=== PATIENT | female | born 1945 | race Caucasian/White ===

== ENCOUNTER → 2023-12-02 08:24 | Outpatient (REF) | payer MEDICARE, SELFPAY ==
[2023-12-02 09:23] LABS: INR 1.68; PT 20.1 Sec (11.4-14.6)
== END ==
LOC: REG 08:24
PROVIDERS: ATTENDING PHYSICIAN Internal Medicine Cardiovascular Disease; FAMILY PHYSICIAN Physician Assistant Medical
DX: I48.91 Unspecified atrial fibrillation (principal)
CPT/HCPCS: 36415; 85610

== ENCOUNTER → 2023-12-09 07:35 | Outpatient (REF) | payer MEDICARE, SELFPAY ==
[2023-12-09 08:29] LABS: INR 1.73; PT 20.1 Sec (11.4-14.6)
== END ==
LOC: REG 07:35
PROVIDERS: ATTENDING PHYSICIAN Internal Medicine Cardiovascular Disease
DX: I48.91 Unspecified atrial fibrillation (principal)
CPT/HCPCS: 36415; 85610

== ENCOUNTER → 2023-12-17 10:21 | Outpatient (REF) | payer MEDICARE, SELFPAY ==
[2023-12-17 11:06] LABS: INR 2.06; PT 23.4 Sec (11.4-14.6)
== END ==
LOC: REG 10:21
PROVIDERS: ATTENDING PHYSICIAN Internal Medicine Cardiovascular Disease
DX: I48.91 Unspecified atrial fibrillation (principal)
CPT/HCPCS: 36415; 85610

== ENCOUNTER → 2023-12-23 07:21 | Outpatient (REF) | payer MEDICARE, SELFPAY ==
[2023-12-23 08:32] LABS: PT 26.9 Sec (11.4-14.6)
== END ==
LOC: REG 07:21
PROVIDERS: ATTENDING PHYSICIAN Internal Medicine Cardiovascular Disease; FAMILY PHYSICIAN Physician Assistant Medical
DX: I48.91 Unspecified atrial fibrillation (principal)
CPT/HCPCS: 36415; 85610

== ENCOUNTER → 2023-12-30 06:45 | Outpatient (REF) | payer MEDICARE, SELFPAY ==
[2023-12-30 07:51] LABS: INR 3.18; PT 32.5 Sec (11.4-14.6)
== END ==
LOC: REG 06:45
PROVIDERS: ATTENDING PHYSICIAN Internal Medicine Cardiovascular Disease; FAMILY PHYSICIAN Physician Assistant Medical
DX: I48.91 Unspecified atrial fibrillation (principal)
CPT/HCPCS: 36415; 85610

== ENCOUNTER → 2024-01-06 06:50 | Outpatient (REF) | payer MEDICARE, SELFPAY ==
[2024-01-06 08:31] LABS: INR 3.11
== END ==
LOC: REG 06:50
PROVIDERS: ATTENDING PHYSICIAN Internal Medicine Cardiovascular Disease; FAMILY PHYSICIAN Physician Assistant Medical
DX: I48.91 Unspecified atrial fibrillation (principal)
CPT/HCPCS: 36415; 85610

== ENCOUNTER → 2024-01-13 07:12 | Outpatient (REF) | payer MEDICARE, SELFPAY ==
[2024-01-13 08:04] LABS: INR 2.41; PT 26.1 Sec (11.4-14.6)
== END ==
LOC: REG 07:12
PROVIDERS: ATTENDING PHYSICIAN Internal Medicine Cardiovascular Disease; FAMILY PHYSICIAN Physician Assistant Medical
DX: I48.91 Unspecified atrial fibrillation (principal)
CPT/HCPCS: 36415; 85610

== ENCOUNTER → 2024-01-20 07:14 | Outpatient (REF) | payer MEDICARE, SELFPAY ==
[2024-01-20 08:31] LABS: INR 2.85; PT 29.9 Sec (11.4-14.6)
== END ==
LOC: REG 07:14
PROVIDERS: ATTENDING PHYSICIAN Internal Medicine Cardiovascular Disease; FAMILY PHYSICIAN Physician Assistant Medical
DX: I48.91 Unspecified atrial fibrillation (principal)
CPT/HCPCS: 36415; 85610

== ENCOUNTER → 2024-01-27 07:18 | Outpatient (REF) | payer MEDICARE, SELFPAY ==
[2024-01-27 08:34] LABS: INR 2.32; PT 25.4 Sec (11.4-14.6)
== END ==
LOC: REG 07:18
PROVIDERS: ATTENDING PHYSICIAN Internal Medicine Cardiovascular Disease; FAMILY PHYSICIAN Physician Assistant Medical
DX: I48.91 Unspecified atrial fibrillation (principal)
CPT/HCPCS: 36415; 85610

== ENCOUNTER → 2024-02-03 06:28 | Outpatient (REF) | payer MEDICARE, SELFPAY ==
[2024-02-03 07:09] LABS: INR 2.31; PT 25.2 Sec (11.4-14.6)
== END ==
LOC: REG 06:28
PROVIDERS: ATTENDING PHYSICIAN Internal Medicine Cardiovascular Disease; FAMILY PHYSICIAN Physician Assistant Medical
DX: I48.91 Unspecified atrial fibrillation (principal)
CPT/HCPCS: 36415; 85610

== ENCOUNTER → 2024-02-10 06:24 | Outpatient (REF) | payer MEDICARE, SELFPAY ==
[2024-02-10 07:36] LABS: INR 2.08; PT 23.2 Sec (11.4-14.6)
== END ==
LOC: REG 06:24
PROVIDERS: ATTENDING PHYSICIAN Internal Medicine Cardiovascular Disease; FAMILY PHYSICIAN Physician Assistant Medical
DX: Z79.01 Long term (current) use of anticoagulants (principal)
CPT/HCPCS: 36415; 85610

== ENCOUNTER → 2024-02-18 06:33 | Outpatient (REF) | payer MEDICARE, SELFPAY ==
[2024-02-18 07:53] LABS: INR 1.94; PT 22.3 Sec (11.4-14.6)
== END ==
LOC: REG 06:33
PROVIDERS: ATTENDING PHYSICIAN Internal Medicine Cardiovascular Disease; FAMILY PHYSICIAN Physician Assistant Medical
DX: I48.91 Unspecified atrial fibrillation (principal)
CPT/HCPCS: 36415; 85610

== ENCOUNTER → 2024-02-24 06:44 | Outpatient (REF) | payer MEDICARE, SELFPAY ==
[2024-02-24 07:57] LABS: INR 2.28
== END ==
LOC: REG 06:44
PROVIDERS: ATTENDING PHYSICIAN Internal Medicine Cardiovascular Disease
DX: I48.91 Unspecified atrial fibrillation (principal)
CPT/HCPCS: 36415; 85610

== ENCOUNTER → 2024-03-23 06:26 | Outpatient (REF) | payer MEDICARE, SELFPAY ==
[2024-03-23 07:46] LABS: INR 2.58; PT 27.6 Sec (11.4-14.6)
== END ==
LOC: REG 06:26
PROVIDERS: ATTENDING PHYSICIAN Internal Medicine Cardiovascular Disease
DX: I48.91 Unspecified atrial fibrillation (principal)
CPT/HCPCS: 36415; 85610

== ENCOUNTER → 2024-04-20 06:29 | Outpatient (REF) | payer MEDICARE, SELFPAY ==
[2024-04-20 08:02] LABS: INR 4.05; PT 39.4 Sec (11.4-14.6)
== END ==
LOC: REG 06:29
PROVIDERS: ATTENDING PHYSICIAN Internal Medicine Cardiovascular Disease
DX: I48.91 Unspecified atrial fibrillation (principal)
CPT/HCPCS: 36415; 85610

== ENCOUNTER → 2024-04-22 12:19 | Outpatient (REF) | payer MEDICARE, SELFPAY ==
[2024-04-22 18:40] LABS: Urine Albumin Negative (Neg - Trace); Urine Bilirubin 1+ (Negative); Urine Character Clear (Clear); Urine Color Yellow; Urine Glucose Negative (Negative); Urine Ketone Trace (Negative); Urine Leukocyte 2+ (Negative); Urine Nitrite Negative (Negative); Urine Occult Blood Negative (Negative); Urine Urobilinogen Negative (Neg - 1+)
[2024-04-22 18:56] LABS: Urine Squamous Cell >30 /LPF (Few); Urine Urothelial Cell 0-2 /LPF (FEW)
[2024-04-22 18:57] LABS: Urine Bacteria Many (Negative); Urine Red Blood Cell 0-2 /HPF (0-2)
== END ==
LOC: CLAB 12:19
PROVIDERS: ATTENDING PHYSICIAN Physician Assistant Medical
DX: R82.90 Unspecified abnormal findings in urine (principal)
CPT/HCPCS: 81003; 81015; 87086

== ENCOUNTER → 2024-04-27 06:24 | Outpatient (REF) | payer MEDICARE, SELFPAY ==
[2024-04-27 06:48] LABS: % Immature Granulocytes 0.4 % (0-0.5); % Lymphocytes 27.1 % (20.5-51.1); % Monocytes 11.3 % (1.7-9.3); % Neutrophils 58.2 % (42.2-75.2); Absolute Basophils 0.1 10^3/uL (0-0.2); Absolute Eosinophils 0.1 10^3/uL (0-0.7); Absolute Lymphocytes 1.3 10^3/uL (1.2-3.4); Absolute Monocytes 0.6 10^3/uL (0.1-0.6); Absolute Neutrophils 2.9 10^3/uL (1.4-6.5); Hematocrit 38.9 % (37.0-47.0); Hemoglobin 13.3 g/dL (12.0-16.0); Mean Corp Hgb Conc. 34.2 g/dL (33.0-37.0); Mean Corpuscular Hgb 29.9 pg (27.0-31.0); Mean Corpuscular Volume 87.4 fL (81.0-99.0); Mean Platelet Volume 10.8 fL (7.4-10.4); Nucleated Red Blood Cells % 0 %; Platelet Count 202 10^3/uL (130-400); Red Blood Cell Count 4.45 10^6/uL (4.20-5.40); Red Cell Dist. Width 13.1 % (11.5-14.5); White Blood Cell Count 4.9 10^3/uL (4.8-10.8)
[2024-04-27 07:00] LABS: INR 4.76; PT 44.9 Sec (11.4-14.6)
[2024-04-27 08:10] LABS: ALT (SGPT) < 10 U/L (0-35); AST (SGOT) 16 U/L (14-36); Alkaline Phosphatase 57 U/L (38-126); Blood Urea Nitrogen 41 mg/dl (7-17); Calcium 9.1 mg/dl (8.4-10.2); Carbon Dioxide 32 mmol/L (22-30); Chloride 102 mmol/L (98-107); Glucose 95 mg/dl (70-99); Potassium 3.2 mmol/L (3.5-5.1); Sodium 142 mmol/L (135-145); Total Bilirubin 2.1 mg/dl (0.2-1.3); Total Protein 6.2 g/dl (6.3-8.2); eGFR 21.97
== END ==
LOC: REG 06:24
PROVIDERS: ATTENDING PHYSICIAN Internal Medicine Cardiovascular Disease; FAMILY PHYSICIAN Physician Assistant Medical
DX: I48.91 Unspecified atrial fibrillation (principal); R82.90 Unspecified abnormal findings in urine; R63.0 Anorexia
CPT/HCPCS: 36415; 80053; 85025; 85610

== ENCOUNTER → 2024-05-04 06:23 | Outpatient (REF) | payer MEDICARE, SELFPAY ==
[2024-05-04 07:48] LABS: INR 5.53; PT 50.5 Sec (11.4-14.6)
== END ==
LOC: REG 06:23
PROVIDERS: ATTENDING PHYSICIAN Internal Medicine Cardiovascular Disease; FAMILY PHYSICIAN Physician Assistant Medical
DX: I48.91 Unspecified atrial fibrillation (principal)
CPT/HCPCS: 36415; 85610

== ENCOUNTER → 2024-05-07 09:30 | Outpatient (REF) | payer MEDICARE, SELFPAY ==
[2024-05-07 10:20] LABS: % Basophils 0.6 % (0-2); % Eosinophils 0.8 % (0-6); % Immature Granulocytes 0.9 % (0-0.5); % Monocytes 9.4 % (1.7-9.3); % Neutrophils 67.3 % (42.2-75.2); Absolute Immature Granulocytes 0.1 10^3/uL (0-0.05); Absolute Lymphocytes 1.1 10^3/uL (1.2-3.4); Absolute Monocytes 0.5 10^3/uL (0.1-0.6); Absolute Neutrophils 3.6 10^3/uL (1.4-6.5); Hematocrit 40.3 % (37.0-47.0); Mean Corp Hgb Conc. 32.3 g/dL (33.0-37.0); Mean Corpuscular Hgb 29.5 pg (27.0-31.0); Mean Corpuscular Volume 91.6 fL (81.0-99.0); Mean Platelet Volume 10.9 fL (7.4-10.4); Nucleated Red Blood Cells % 0 %; Platelet Count 223 10^3/uL (130-400); Red Cell Dist. Width 13.4 % (11.5-14.5); White Blood Cell Count 5.3 10^3/uL (4.8-10.8)
[2024-05-07 10:34] LABS: Albumin 3.7 g/dl (3.5-5.0); Blood Urea Nitrogen 37 mg/dl (7-17); Carbon Dioxide 32 mmol/L (22-30); Chloride 103 mmol/L (98-107); Glucose 104 mg/dl (70-99); Phosphorus 2.8 mg/dl (2.5-4.5); Potassium 3.6 mmol/L (3.5-5.1); Sodium 141 mmol/L (135-145); eGFR 27.96
[2024-05-07 11:49] LABS: Osmolality Urine 605 mOsm/kg (300-900)
[2024-05-07 11:59] LABS: Urine Protein 13 mg/dl (0-12); Urine Sodium 27 mmol/L (30-90)
== END ==
LOC: REG 09:30
PROVIDERS: ATTENDING PHYSICIAN Internal Medicine; FAMILY PHYSICIAN Physician Assistant Medical
DX: N17.9 Acute kidney failure, unspecified (principal)
CPT/HCPCS: 36415; 80069; 82570; 83935; 84156; 84300; 85025

== ENCOUNTER → 2024-05-11 06:16 | Outpatient (REF) | payer MEDICARE, SELFPAY ==
[2024-05-11 07:44] LABS: INR 3.37; PT 34.1 Sec (11.4-14.6)
== END ==
LOC: REG 06:16
PROVIDERS: ATTENDING PHYSICIAN Internal Medicine Cardiovascular Disease
DX: I48.91 Unspecified atrial fibrillation (principal)
CPT/HCPCS: 36415; 85610

== ENCOUNTER → 2024-05-17 08:29 | Outpatient (REF) | payer MEDICARE, SELFPAY ==
[2024-05-17 09:56] LABS: PT 27.7 Sec (11.4-14.6)
== END ==
LOC: REG 08:29
PROVIDERS: ATTENDING PHYSICIAN Internal Medicine Cardiovascular Disease; FAMILY PHYSICIAN Physician Assistant Medical
DX: I48.91 Unspecified atrial fibrillation (principal)
CPT/HCPCS: 36415; 85610

== ENCOUNTER → 2024-05-25 06:18 | Outpatient (REF) | payer MEDICARE, SELFPAY ==
[2024-05-25 07:23] LABS: INR 1.35; PT 16.7 Sec (11.4-14.6)
== END ==
LOC: REG 06:18
PROVIDERS: ATTENDING PHYSICIAN Internal Medicine Cardiovascular Disease; FAMILY PHYSICIAN Physician Assistant Medical
DX: I48.91 Unspecified atrial fibrillation (principal)
CPT/HCPCS: 36415; 85610

== ENCOUNTER → 2024-05-28 09:03 | Outpatient (REF) | payer MEDICARE, SELFPAY ==
[2024-05-28 10:04] LABS: Albumin 3.7 g/dl (3.5-5.0); Blood Urea Nitrogen 25 mg/dl (7-17); Carbon Dioxide 28 mmol/L (22-30); Chloride 109 mmol/L (98-107); Glucose 88 mg/dl (70-99); Phosphorus 3.1 mg/dl (2.5-4.5); Potassium 3.8 mmol/L (3.5-5.1); Sodium 142 mmol/L (135-145); eGFR 34.79
== END ==
LOC: REG 09:03
PROVIDERS: ATTENDING PHYSICIAN Internal Medicine; FAMILY PHYSICIAN Physician Assistant Medical
DX: I10 Essential (primary) hypertension (principal); E53.8 Deficiency of other specified B group vitamins; N17.9 Acute kidney failure, unspecified
CPT/HCPCS: 36415; 80069

== ENCOUNTER → 2024-06-01 09:59 | Outpatient (REF) | payer MEDICARE, SELFPAY ==
[2024-06-01 11:25] LABS: INR 1.21; PT 15.2 Sec (11.4-14.6)
== END ==
LOC: REG 09:59
PROVIDERS: ATTENDING PHYSICIAN Internal Medicine Cardiovascular Disease; FAMILY PHYSICIAN Physician Assistant Medical
DX: I48.91 Unspecified atrial fibrillation (principal)
CPT/HCPCS: 36415; 85610

== ENCOUNTER → 2024-06-08 06:19 | Outpatient (REF) | payer MEDICARE, SELFPAY ==
[2024-06-08 07:29] LABS: INR 1.54; PT 18.3 Sec (11.4-14.6)
== END ==
LOC: REG 06:19
PROVIDERS: ATTENDING PHYSICIAN Internal Medicine Cardiovascular Disease; FAMILY PHYSICIAN Physician Assistant Medical
DX: I48.91 Unspecified atrial fibrillation (principal)
CPT/HCPCS: 36415; 85610

== ENCOUNTER → 2024-06-15 06:22 | Outpatient (REF) | payer MEDICARE, SELFPAY ==
[2024-06-15 07:47] LABS: INR 2.05
== END ==
LOC: REG 06:22
PROVIDERS: ATTENDING PHYSICIAN Internal Medicine Cardiovascular Disease; FAMILY PHYSICIAN Physician Assistant Medical
DX: I48.91 Unspecified atrial fibrillation (principal)
CPT/HCPCS: 36415; 85610

== ENCOUNTER → 2024-06-22 06:18 | Outpatient (REF) | payer MEDICARE, SELFPAY ==
[2024-06-22 07:48] LABS: INR 1.62; PT 19.1 Sec (11.4-14.6)
== END ==
LOC: REG 06:18
PROVIDERS: ATTENDING PHYSICIAN Internal Medicine Cardiovascular Disease; FAMILY PHYSICIAN Physician Assistant Medical
DX: I48.91 Unspecified atrial fibrillation (principal)
CPT/HCPCS: 36415; 85610

== ENCOUNTER → 2024-06-29 06:29 | Outpatient (REF) | payer MEDICARE, SELFPAY ==
[2024-06-29 07:31] LABS: INR 2.26; PT 24.8 Sec (11.4-14.6)
== END ==
LOC: REG 06:29
PROVIDERS: ATTENDING PHYSICIAN Internal Medicine Cardiovascular Disease; FAMILY PHYSICIAN Physician Assistant Medical
DX: I48.91 Unspecified atrial fibrillation (principal)
CPT/HCPCS: 36415; 85610

== ENCOUNTER → 2024-07-06 06:29 | Outpatient (REF) | payer MEDICARE, SELFPAY ==
[2024-07-06 07:31] LABS: INR 1.87; PT 21.4 Sec (11.4-14.6)
== END ==
LOC: REG 06:29
PROVIDERS: ATTENDING PHYSICIAN Internal Medicine Cardiovascular Disease; FAMILY PHYSICIAN Physician Assistant Medical
DX: I48.91 Unspecified atrial fibrillation (principal)
CPT/HCPCS: 36415; 85610

== ENCOUNTER → 2024-07-14 09:57 | Outpatient (REF) | payer MEDICARE, SELFPAY ==
[2024-07-14 10:56] LABS: INR 1.46; PT 17.9 Sec (11.4-14.6)
== END ==
LOC: REG 09:57
PROVIDERS: ATTENDING PHYSICIAN Internal Medicine Cardiovascular Disease; FAMILY PHYSICIAN Physician Assistant Medical
DX: I48.91 Unspecified atrial fibrillation (principal)
CPT/HCPCS: 36415; 85610

== ENCOUNTER → 2024-07-20 09:32 | Outpatient (REF) | payer MEDICARE, SELFPAY ==
[2024-07-20 10:20] LABS: INR 2.15; PT 23.9 Sec (11.4-14.6)
== END ==
LOC: REG 09:32
PROVIDERS: ATTENDING PHYSICIAN Internal Medicine Cardiovascular Disease; FAMILY PHYSICIAN Physician Assistant Medical
DX: I48.91 Unspecified atrial fibrillation (principal)
CPT/HCPCS: 36415; 85610

== ENCOUNTER → 2024-07-27 09:44 | Outpatient (REF) | payer MEDICARE, SELFPAY ==
[2024-07-27 11:46] LABS: INR 1.35; PT 16.5 Sec (11.4-14.6)
== END ==
LOC: REG 09:44
PROVIDERS: ATTENDING PHYSICIAN Internal Medicine Cardiovascular Disease
DX: I48.91 Unspecified atrial fibrillation (principal)
CPT/HCPCS: 36415; 85610

== ENCOUNTER → 2024-08-03 08:41 | Outpatient (REF) | payer MEDICARE, SELFPAY ==
[2024-08-03 10:31] LABS: PT 24.3 Sec (11.4-14.6)
== END ==
LOC: REG 08:41
PROVIDERS: ATTENDING PHYSICIAN Internal Medicine Cardiovascular Disease; FAMILY PHYSICIAN Physician Assistant Medical
DX: I48.91 Unspecified atrial fibrillation (principal)
CPT/HCPCS: 36415; 85610

== ENCOUNTER → 2024-08-10 09:10 | Outpatient (REF) | payer MEDICARE, SELFPAY ==
[2024-08-10 10:27] LABS: INR 2.52; PT 27.1 Sec (11.4-14.6)
== END ==
LOC: REG 09:10
PROVIDERS: ATTENDING PHYSICIAN Internal Medicine Cardiovascular Disease; FAMILY PHYSICIAN Physician Assistant Medical
DX: I48.91 Unspecified atrial fibrillation (principal)
CPT/HCPCS: 36415; 85610

== ENCOUNTER → 2024-08-17 09:22 | Outpatient (REF) | payer MEDICARE, SELFPAY ==
[2024-08-17 11:30] LABS: INR 3.88; PT 38.1 Sec (11.4-14.6)
== END ==
LOC: REG 09:22
PROVIDERS: ATTENDING PHYSICIAN Internal Medicine Cardiovascular Disease; FAMILY PHYSICIAN Physician Assistant Medical
DX: I48.91 Unspecified atrial fibrillation (principal)
CPT/HCPCS: 36415; 85610

== ENCOUNTER → 2024-08-24 09:58 | Outpatient (REF) | payer MEDICARE, SELFPAY ==
[2024-08-24 10:55] LABS: INR 4.31; PT 41.5 Sec (11.4-14.6)
== END ==
LOC: REG 09:58
PROVIDERS: ATTENDING PHYSICIAN Internal Medicine Cardiovascular Disease; FAMILY PHYSICIAN Physician Assistant Medical
DX: I48.91 Unspecified atrial fibrillation (principal)
CPT/HCPCS: 36415; 85610

== ENCOUNTER → 2024-08-31 09:28 | Outpatient (REF) | payer MEDICARE, SELFPAY ==
[2024-08-31 10:26] LABS: PT 43.7 Sec (11.4-14.6)
== END ==
LOC: REG 09:28
PROVIDERS: ATTENDING PHYSICIAN Internal Medicine Cardiovascular Disease; FAMILY PHYSICIAN Physician Assistant Medical
DX: I48.91 Unspecified atrial fibrillation (principal)
CPT/HCPCS: 36415; 85610

== ENCOUNTER → 2024-09-07 08:27 | Outpatient (REF) | payer MEDICARE, SELFPAY ==
[2024-09-07 09:55] LABS: INR 2.84; PT 29.8 Sec (11.4-14.6)
== END ==
LOC: REG 08:27
PROVIDERS: ATTENDING PHYSICIAN Internal Medicine Cardiovascular Disease
DX: I48.91 Unspecified atrial fibrillation (principal)
CPT/HCPCS: 36415; 85610

== ENCOUNTER → 2024-09-15 14:15 | Outpatient (REF) | payer MEDICARE, SELFPAY ==
[2024-09-15 15:05] LABS: INR 2.48; PT 27.3 Sec (11.4-14.6)
== END ==
LOC: REG 14:15
PROVIDERS: ATTENDING PHYSICIAN Internal Medicine Cardiovascular Disease
DX: I48.91 Unspecified atrial fibrillation (principal)
CPT/HCPCS: 36415; 85610

== ENCOUNTER → 2024-09-21 10:19 | Outpatient (REF) | payer MEDICARE, SELFPAY ==
[2024-09-21 11:39] LABS: INR 2.24; PT 24.9 Sec (11.4-14.6)
== END ==
LOC: REG 10:19
PROVIDERS: ATTENDING PHYSICIAN Internal Medicine Cardiovascular Disease; FAMILY PHYSICIAN Physician Assistant Medical
DX: I48.91 Unspecified atrial fibrillation (principal)
CPT/HCPCS: 36415; 85610

== ENCOUNTER 2024-10-17 18:25 | Emergency (ER) | payer MEDICARE, SELFPAY ==
[2024-10-17 18:33] VITALS: BP 150/87
[2024-10-17 19:49] LABS: ALT (SGPT) 16 U/L (0-35); AST (SGOT) 18 U/L (14-36); Albumin 4.2 g/dl (3.5-5.0); Alkaline Phosphatase 99 U/L (38-126); Blood Urea Nitrogen 47 mg/dl (7-17); Carbon Dioxide 30 mmol/L (22-30); Chloride 105 mmol/L (98-107); Glucose 70 mg/dl (70-99); Potassium 4.9 mmol/L (3.5-5.1); Sodium 144 mmol/L (135-145); Total Bilirubin 0.4 mg/dl (0.2-1.3); Total Protein 6.5 g/dl (6.3-8.2); eGFR 29.94
[2024-10-17 19:50] LABS: NT-proBNP 4780 pg/ml
[2024-10-17 19:51] LABS: % Eosinophils 4.1 % (0-6); % Immature Granulocytes 0.3 % (0-0.5); % Lymphocytes 30.1 % (20.5-51.1); % Monocytes 14.1 % (1.7-9.3); % Neutrophils 50.4 % (42.2-75.2); Absolute Eosinophils 0.2 10^3/uL (0-0.7); Absolute Lymphocytes 1.2 10^3/uL (1.2-3.4); Absolute Monocytes 0.6 10^3/uL (0.1-0.6); Hematocrit 36.8 % (37.0-47.0); Hemoglobin 11.8 g/dL (12.0-16.0); Mean Corp Hgb Conc. 32.1 g/dL (33.0-37.0); Mean Corpuscular Hgb 30.2 pg (27.0-31.0); Mean Corpuscular Volume 94.1 fL (81.0-99.0); Mean Platelet Volume 10.6 fL (7.4-10.4); Nucleated Red Blood Cells % 0 %; Platelet Count 201 10^3/uL (130-400); Red Blood Cell Count 3.91 10^6/uL (4.20-5.40); White Blood Cell Count 3.9 10^3/uL (4.8-10.8)
--- NOTE | 2024-10-17 19:53 | ED.GENMED ---
History of Present Illness
<GISELL Gandhi - Last Filed: 10/17/24 22:33>
General
Chief Complaint: Swelling
Source: patient
Exam Limitations: none
Time Seen by Provider: 10/17/24 19:48
History of Present Illness
History of Present Illness:
Patient is an 79-year-old female with dementia chronic kidney disease hypertension from assisted living sent for evaluation of lower extremity swelling and redness with drainage. Daughter reports this is new. She saw her several days ago and her
legs were not swollen or red. Daughter reports patient is at baseline mental status ; she does have a history of dementia. Patient is unable to give history. Patient has no complaints. She is unaware of any fevers.
Past History
<GISELL Gandhi - Last Filed: 10/17/24 22:33>
Past History
ED Past Medical History: Arrthythmia (Atrial fibrillation) and HTN
ED Past Surgical History: Orthopedic
Social History
Personal: (Patient has a history of sciatica on the right side but states this doesn't feel anything like her sciatic pain. )
Living: with family
Review of Systems
<GISELL Gandhi - Last Filed: 10/17/24 22:33>
Review of Systems
Allergies reviewed?: Yes
All Other Systems: ROS reviewed and negative except as documented in HPI and ROS
Constitutional: Reports no symptoms; Denies fever, fatigue or chills
Respiratory: Reports no symptoms
Cardiac: Reports no symptoms
ABD/GI: Reports no symptoms
Musculoskeletal: Reports other (lower extremity swelling b/l with weeping )
Skin: Reports other (redness to b/l legs )
Neurological: Reports no symptoms
Psychiatric: Reports no symptoms
Phy Exam
<GISELL Gandhi - Last Filed: 10/17/24 22:33>
General Physical Exam
General Presentation: no apparent distress
General age: appears stated age
General Skin: warm and dry
General Habitus: normal
General Mental: alert
General Hydration: appears well hydrated
Cardiovascular Exam
Cardiovascular Exam: no murmur and irregularly irregular
Pulmonary Exam
Pulmonary Exam: lungs clear and no respiratory distress
Neurological Exam
Neurological Exam: alert
Musculoskeletal Exam
Musculoskeletal Exam: other (Lower extremity swelling bilaterally with scattered redness weeping scratch hampton noted to bilateral lower legs)
Skin Exam
Skin Exam: normal color and warm/dry
Psychiatric Exam
Psychiatric Exam: normal mood/affect
Scores
<GISELL Gandhi - Last Filed: 10/17/24 22:33>
Heart Failure Risk
Heart Failure Risk Score: Not Applicable
Course
<GISELL Gandhi - Last Filed: 10/17/24 22:33>
Orders/Labs/Results
Orders:
Orders
10/17/24 18:38
Electrocardiogram (*1) Urgent
Reason for Study: Fatigue / Weakness
EKG- Treatment ONCE
10/17/24 19:15
Complete Blood Count/With Diff Urgent
Comprehensive Metabolic Panel Urgent
NT-proBNP Urgent
10/17/24 20:03
Venous Doppler Lwr Ext Bilat [US Periph Venous LOWER Ext Kadeem] Urgent
Comment:
Reason For Exam: swelling b/l
10/17/24 22:27
Cephalexin Monohydrate [Keflex] 500 mg PO NOW STA
Abnormal Lab Results
10/17/24
19:15
WBC 3.9 L 10^3/uL
(4.8-10.8)
RBC 3.91 L 10^6/uL
(4.20-5.40)
Hgb 11.8 L g/dL
(12.0-16.0)
Hct 36.8 L %
(37.0-47.0)
MCHC 32.1 L g/dL
(33.0-37.0)
MPV 10.6 H fL
(7.4-10.4)
Monocytes % 14.1 H %
(1.7-9.3)
BUN 47 H mg/dl
(7-17)
Creatinine 1.7 H mg/dL
(0.6-1.0)
10/17/24 19:15
10/17/24 19:15
Vital Signs
Initial and Last Documented VS:
Initial Vital Signs
Temp Pulse Resp BP Pulse Ox
36.6 C 94 18 150/87 100
10/17/24 18:33 10/17/24 18:33 10/17/24 18:33 10/17/24 18:33 10/17/24 18:33
Last Documented Vital Signs
Temp Pulse Resp BP Pulse Ox
36.6 C 94 16 150/87 100
10/17/24 18:33 10/17/24 18:33 10/17/24 20:00 10/17/24 18:33 10/17/24 18:33
Metal Buggy Operator consulted with Physician
Metal Buggy Operator consulted with physician?: Yes
Name of Physician Consulted: Simi
<Cain Belcher MD - Last Filed: 10/17/24 22:38>
Orders/Labs/Results
Orders:
Orders
10/17/24 18:38
Electrocardiogram (*1) Urgent
Reason for Study: Fatigue / Weakness
EKG- Treatment ONCE
10/17/24 19:15
Complete Blood Count/With Diff Urgent
Comprehensive Metabolic Panel Urgent
NT-proBNP Urgent
10/17/24 20:03
Venous Doppler Lwr Ext Bilat [US Periph Venous LOWER Ext Kadeem] Urgent
Comment:
Reason For Exam: swelling b/l
10/17/24 22:27
Cephalexin Monohydrate [Keflex] 500 mg PO NOW STA
Abnormal Lab Results
10/17/24
19:15
WBC 3.9 L 10^3/uL
(4.8-10.8)
RBC 3.91 L 10^6/uL
(4.20-5.40)
Hgb 11.8 L g/dL
(12.0-16.0)
Hct 36.8 L %
(37.0-47.0)
MCHC 32.1 L g/dL
(33.0-37.0)
MPV 10.6 H fL
(7.4-10.4)
Monocytes % 14.1 H %
(1.7-9.3)
BUN 47 H mg/dl
(7-17)
Creatinine 1.7 H mg/dL
(0.6-1.0)
10/17/24 19:15
10/17/24 19:15
Vital Signs
Initial and Last Documented VS:
Initial Vital Signs
Temp Pulse Resp BP Pulse Ox
36.6 C 94 18 150/87 100
10/17/24 18:33 10/17/24 18:33 10/17/24 18:33 10/17/24 18:33 10/17/24 18:33
Last Documented Vital Signs
Temp Pulse Resp BP Pulse Ox
36.6 C 94 16 150/87 100
10/17/24 18:33 10/17/24 18:33 10/17/24 20:00 10/17/24 18:33 10/17/24 18:33
<GISELL Gandhi - Last Filed: 10/17/24 22:33>
MDM/Problems Addressed
Differential Diagnosis Includes:
not limited to: cellultis, dvt
MDM/Problems Addressed:
Symptoms are consistent with cellulitis. Patient has some bilateral redness to legs however right leg has increased redness and slight drainage. Patient however is nontoxic in no acute distress afebrile white count minimally low at 3.9 ultrasound
negative for DVT. Patient with no shortness of breath lungs are clear not hypoxic. Case discussed with ED physician who evaluated pt at bedside.
stable for discharge home with Keflex with very close outpatient follow-up. Patient evaluated by ED physician who spoke with [facility] staff to ensure close follow-up and to return if any worsening of symptoms.
INR was not checked in the ER daughter reports INR was just checked this week and was within normal limits
Chronic conditions affecting care:
dementia
<GISELL Gandhi - Last Filed: 10/17/24 22:33>
*Critical Care Note
Total Time (30-74mins, 75-104mins- exclusive of procedures): Not Applicable
ED Attending Note
<GISELL Gandhi - Last Filed: 10/17/24 22:33>
-
Portions of this chart may have been created with voice recognition software.� Occasional wrong word or��sound alike� substitutions may have occurred due to the inherent limitations of voice recognition software.
<Cain Belcher MD - Last Filed: 10/17/24 22:38>
ED Attending Note
Patient seen and examined by attending physician: Yes
ED Attending Note:
I have seen and evaluated the patient with a [id number] encounter. I have spoken to the advance practicer provider and involved in the medical history, the physical exam, medical decision making.
Evaluation and management service: agree unless noted differently below.
Results interpretation: agree unless noted differently below.
Focused HPI: 79-year-old female with history as documented presents to the ER with her daughter for evaluation of leg swelling and redness over the past 3 weeks. Started to have some weeping and increased redness and daughter brought to the ER. No
fever. No trauma.
Physical exam: Awake alert no distress. Hypertensive otherwise normal vitals. She has bilateral lower extremity edema symmetric. Right leg skin is dry and cracked with some weeping and redness in the anterior arauz and extending laterally; only
some faint erythema on the anterior left leg appears to be more consistent with chronic venous stasis changes. Good pulses in both legs.
Medical Decision Makin-year-old female presents with redness and swelling mainly in the right leg progressed over the past few weeks. Having some weeping as well. Labs sent off including a CBC which shows very slight leukopenia no other
clinically significant abnormalities. CMP shows CKD which is baseline. Ultrasound of the right leg shows no DVT. Suspect an acute cellulitis. She is not diabetic. I think it would be reasonable to trial an outpatient regiment with oral
antibiotic to start�discussed with patient and daughter, daughter feels okay with this plan. I did speak directly to the staff at patient's assisted living and they will monitor the area closely and ensure that if symptoms are worsening or if they
are not improving with antibiotic treatment patient returns to the emergency room.
Discharge Plan
Departure
Patient Disposition: Home (Routine Discharge)
Date of Disposition: 10/17/24
Time of Disposition: 22:28
Patient with high blood pressure during this ER visit?: Yes
Covid-19: Not Applicable
Discharge Problem:
Cellulitis
Instructions: Cellulitis (skin infection) in adults - Discharge instructions
Prescriptions:
New
cephalexin 500 mg capsule
500 mg PO Q6H Qty: 28 0RF
No Action
metoprolol succinate [Toprol XL] 100 mg Tablet Extended Release 24 Hr
100 mg PO DAILY
hydrochlorothiazide 25 mg Tablet
25 mg PO DAILY
warfarin 2.5 mg tablet
2.5 mg PO SUMOFRSA
warfarin 2.5 mg tablet
5 mg PO WETH
amoxicillin-pot clavulanate 875-125 mg Tablet
1 tab PO Q12 Qty: 28 0RF
Referrals:
Aimee Vazquez PA-C [Family Provider] -
Activity Restrictions/Additional Instructions:
Patient was given first dose of antibiotics here in the ER. A prescription for Keflex was sent to the pharmacy. Patient must be closely evaluated by family doctor in the next several days. Return however if any worsening of symptoms of increased
redness pain swelling fever chills.
Interventions
Interventions:
*Risk Screen - Suicide Last Done: 10/17/24 18:33
*General Assessment Last Done: 10/17/24 18:33
*Neglect/Abuse Screening Last Done: 10/17/24 18:33
ED- Fall Risk Assessment Last Done: 10/17/24 20:16
*ED COVID-19 Vaccine History Last Done: 10/17/24 20:21
ED- Cardiac Assessment Last Done: 10/17/24 20:16
ED- Pulmonary Assessment Last Done: 10/17/24 20:16
ED-Skin Assessment Last Done: 10/17/24 20:16
Discharge Date and Time
Print Language: KISWAHILI
[2024-10-17] MEDS: KEFLEX 500 MG PO (22:53)
[2024-10-17 23:03] VITALS: BP 109/69
== END 2024-10-17 23:08 ==
LOC: EMR 18:25
PROVIDERS: Student in an Organized Health Care Education/Training Program; EMERGENCY PHYSICIAN Emergency Medicine; FAMILY PHYSICIAN Physician Assistant Medical
DX: L03.116 Cellulitis of left lower limb (principal); L03.115 Cellulitis of right lower limb; F03.90 Unspecified dementia, unspecified severity, without behavioral disturbance, psychotic disturbance, mood disturbance, and anxiety; I12.9 Hypertensive chronic kidney disease with stage 1 through stage 4 chronic kidney disease, or unspecified chronic kidney disease; N18.9 Chronic kidney disease, unspecified; I48.91 Unspecified atrial fibrillation
CPT/HCPCS: 99284; 80053; 83880; 85025; 93005; 93970

== ENCOUNTER 2025-03-24 11:08 | Inpatient (IN) | payer MEDICARE, SELFPAY ==
[2025-03-22] VITALS (8 sets, daily range): BP systolic 137–176; BP diastolic 82–133; BMI 26.2; BMI 24.2
--- NOTE | 2025-03-22 16:03 | ED.GENMED ---
History of Present Illness
General
Chief Complaint: Seizure
Time Seen by Provider: 03/22/25 15:44
History of Present Illness
History of Present Illness:
Patient is a 79-year-old female with history of dementia, atrial fibrillation on Coumadin presenting to the emergency department with concerns for possible seizure. Per medics patient has been witnessed the event. She was sitting when she slumped
over had movement of her upper and lower extremities. She did not fall off the chair. She was postictal for about 5 minutes. She is back to her baseline.
Past History
Past History
ED Past Medical History: Arrthythmia (Atrial fibrillation) and HTN
ED Past Surgical History: Orthopedic
Social History
Personal: (Patient has a history of sciatica on the right side but states this doesn't feel anything like her sciatic pain. )
Living: with family
Phy Exam
Physical Exam
Physical Exam:
GENERAL: in no acute distress
HEENT: normocephalic, extraocular movements intact, moist oral mucosa, no tongue laceration
NECK: normal inspection
RESPIRATORY: no respiratory distress, clear to auscultation bilaterally
CARDIOVASCULAR: regular rate and rhythm
ABDOMEN/: soft, non-distended, non-tender to palpation, no rebound or guarding
EXTREMITIES: non-tender, no edema/swelling
NEUROLOGIC: awake and alert oriented x 1, moves all extremities
SKIN: warm
Course
Orders/Labs/Results
Orders:
Orders
03/22/25 15:50
CT Head W/o Iv Contrast Urgent
Comment: new onset seizure, on blood thinners
Reason For Exam: seizure
Straight cath- Treatment ONCE
03/22/25 15:58
Electrocardiogram (*1) Urgent
Reason for Study: Other
Other Reason for Exam: seizure
EKG- Treatment ONCE
03/22/25 16:20
Complete Blood Count/With Diff Urgent
Comprehensive Metabolic Panel Urgent
Prothrombin Time Urgent
Urinalysis Reflex To Culture Urgent
Date Specimen was Collected: 03/22/25
Time Specimen was Collected: 15:51
Urine Microscopic Reflex Cult Urgent
Abnormal Lab Results
03/22/25
16:20
WBC 3.3 L 10^3/uL
(4.8-10.8)
RBC 4.12 L 10^6/uL
(4.20-5.40)
MCH 31.1 H pg
(27.0-31.0)
MPV 11.4 H fL
(7.4-10.4)
Monocytes % 12.3 H %
(1.7-9.3)
PT 22.8 H Sec
(11.4-14.6)
Chloride 108 H mmol/L
(98-107)
BUN 31 H mg/dl
(7-17)
Creatinine 1.3 H mg/dL
(0.6-1.0)
Glucose 140 H mg/dl
(70-99)
Total Bilirubin 1.4 H mg/dl
(0.2-1.3)
Urine Bacteria (Reflex) Few A
(Negative)
Urine Albumin (Reflex) 1+ A
(Neg - Trace)
03/22/25 16:20
03/22/25 16:20
Vital Signs
Initial and Last Documented VS:
Initial Vital Signs
Temp Pulse Resp BP Pulse Ox
98.0 F 77 20 150/82 100
03/22/25 15:39 03/22/25 15:39 03/22/25 15:39 03/22/25 15:39 03/22/25 15:39
Last Documented Vital Signs
Temp Pulse Resp BP Pulse Ox
98.0 F 77 20 150/82 100
03/22/25 15:39 03/22/25 15:39 03/22/25 15:39 03/22/25 15:44 03/22/25 15:45
MDM/Problems Addressed
Differential Diagnosis Includes:
Patient is a 79-year-old woman with history of dementia presenting to the emergency department with an episode of unresponsiveness with extremity jerking. On arrival patient's vital signs are unremarkable and exam is reassuring. She is back to her
baseline. Differential consists of arrhythmia versus syncope versus seizure versus metabolic derangement. She did not fall off the chair so less likely to be traumatic intracranial injuries. Will obtain blood work EKG and CT scan.
*Critical Care Note
Total Time (30-74mins, 75-104mins- exclusive of procedures): Not Applicable
Update Note
Update Note:
Blood work unremarkable. CT scan of the head negative. EKG atrial fibrillation. Given normal bicarb with no tongue laceration could also be syncope versus true seizure. Patient will benefit from observation. Discussed with hospitalist who
accepted patient to their service.
ED Attending Note
-
Portions of this chart may have been created with voice recognition software.� Occasional wrong word or��sound alike� substitutions may have occurred due to the inherent limitations of voice recognition software.
Discharge Plan
Departure
Patient Disposition: Admit
Date of Disposition: 03/22/25
Time of Disposition: 18:04
Presentation/result/management discussed w/ accepting MD/DO: Hospitalist
Discharge Problem:
Transient loss of consciousness
Prescriptions:
No Action
metoprolol succinate [Toprol XL] 100 mg Tablet Extended Release 24 Hr
100 mg PO DAILY
hydrochlorothiazide 25 mg Tablet
25 mg PO DAILY
warfarin 2.5 mg tablet
2.5 mg PO FR
warfarin 2.5 mg tablet
5 mg PO WETH
amoxicillin-pot clavulanate 875-125 mg Tablet
1 tab PO Q12 Qty: 28 0RF
cephalexin 500 mg capsule
500 mg PO Q6H Qty: 28 0RF
Referrals:
Tali García DO [Family Provider] -
Interventions
Interventions:
*Risk Screen - Suicide Last Done: 03/22/25 15:39
*General Assessment Last Done: 03/22/25 15:39
*Neglect/Abuse Screening Last Done: 03/22/25 15:39
*ED COVID-19 Vaccine History Last Done: 03/22/25 15:39
ED- Cardiac Assessment Last Done: 03/22/25 16:37
ED- Neurological Assessment Last Done: 03/22/25 16:37
ED- Pulmonary Assessment Last Done: 03/22/25 16:37
Discharge Date and Time
Print Language: LAO
[2025-03-22 16:28] LABS: Urine Albumin 1+ (Neg - Trace); Urine Bilirubin Negative (Negative); Urine Character Clear (Clear); Urine Color Yellow; Urine Glucose Negative (Negative); Urine Ketone Negative (Negative); Urine Leukocyte Negative (Negative); Urine Nitrite Negative (Negative); Urine Occult Blood Negative (Negative); Urine Urobilinogen 1+ (Neg - 1+)
[2025-03-22 16:44] LABS: Urine Bacteria Few (Negative); Urine Calcium Oxalate Crystals Present; Urine Red Blood Cell 0-2 /HPF (0-2); Urine White Cell 0-2 /HPF (0-5)
[2025-03-22 16:47] LABS: % Basophils 0.6 % (0-2); % Eosinophils 0.9 % (0-6); % Lymphocytes 35.3 % (20.5-51.1); % Monocytes 12.3 % (1.7-9.3); % Neutrophils 50.9 % (42.2-75.2); Absolute Lymphocytes 1.2 10^3/uL (1.2-3.4); Absolute Monocytes 0.4 10^3/uL (0.1-0.6); Absolute Neutrophils 1.7 10^3/uL (1.4-6.5); Hematocrit 38.4 % (37.0-47.0); Hemoglobin 12.8 g/dL (12.0-16.0); Mean Corp Hgb Conc. 33.3 g/dL (33.0-37.0); Mean Corpuscular Hgb 31.1 pg (27.0-31.0); Mean Corpuscular Volume 93.2 fL (81.0-99.0); Mean Platelet Volume 11.4 fL (7.4-10.4); Nucleated Red Blood Cells % 0 %; Platelet Count 130 10^3/uL (130-400); Red Blood Cell Count 4.12 10^6/uL (4.20-5.40); Red Cell Dist. Width 12.8 % (11.5-14.5); White Blood Cell Count 3.3 10^3/uL (4.8-10.8)
[2025-03-22 16:48] LABS: ALT (SGPT) < 10 U/L (0-35); AST (SGOT) 16 U/L (14-36); Alkaline Phosphatase 48 U/L (38-126); Blood Urea Nitrogen 31 mg/dl (7-17); Calcium 8.7 mg/dl (8.4-10.2); Carbon Dioxide 28 mmol/L (22-30); Chloride 108 mmol/L (98-107); Estimated Creatinine Clearance 29 ml/min; Glucose 140 mg/dl (70-99); Potassium 4.4 mmol/L (3.5-5.1); Sodium 141 mmol/L (135-145); Total Bilirubin 1.4 mg/dl (0.2-1.3); Total Protein 6.4 g/dl (6.3-8.2); eGFR 41.31
[2025-03-22 16:53] LABS: INR 1.95; PT 22.8 Sec (11.4-14.6)
--- NOTE | 2025-03-22 18:53 | HPS.HSE ---
Family Physician
-
Family Physician: Tali García
Chief Complaint
-
episode of unresponsiveness with extremity jerking
History of Present Illness
Patient is a 79-year-old female with past medical history significant for atrial fibrillation on Coumadin, essential hypertension, severe dementia, CKD IIIb and lower extremity edema who presented to [facility] ED for evaluation of episode of
unresponsiveness with extremity jerking. Patient daughter at bedside to assist in HPI. Patient is AAOx1-2 and unable to contribute any meaningful history. Daughter states patient has had recent decline with dementia with increased agitation in the
evenings. Patient was at baseline all day, daughter states she dropped her mom off at [place] following an appointment with patients spouse. Within 15 minutes of leaving spouse reported that patients extremities became stiff and patient was
unresponsive, spouse used call [facility] and patient was at baseline by the time staff arrived in room. Denies any recent illness, fevers, chills, cough, shortness of breath, chest pain, nausea, vomiting, constipation, diarrhea or urinary symptoms.
Medical History
Past Medical History
Past Medical History: Reports Other
Additional Past Medical History:
atrial fibrillation on Coumadin
essential hypertension
severe dementia
CKD IIIb
lower extremity edema
Past Surgical History: Reports Other
Additional Past Surgical History:
total replacement of right hip
Social History
Tobacco: Former Smoker
Alcohol: None
Drug: None
Personal:
Living: Assisted Living
Employment: Retired
Family History
Family History: Not pertinent
Allergies / Home Medications
Allergies reflects when Allergies were last updated in Outline App.
Home Medications with original date entered in Outline App
Allergy/Medication List:
Allergies
Allergy/AdvReac Type Severity Reaction Status Date / Time
No Known Allergies Allergy Verified 10/22/23 12:37
Home Medications
metoprolol succinate 100 mg tablet,extended release 24 hr (Toprol XL) 100 mg PO DAILY Blood Pressure 06/06/22
warfarin 2.5 mg tablet 2.5 mg PO QPM Blood Clot Prevention/Tx 10/22/23
bacitracin 500 unit/gram topical ointment 1 applic topical DAILY 03/22/25
escitalopram oxalate 5 mg tablet 5 mg PO HS 03/22/25
lorazepam 0.5 mg tablet 0.5 mg PO DAILY PRN give 30 mins prior to care 03/22/25
Review of Systems
-
Unable to obtain full review of systems at this time due to: Dementia
History Source: Family
Neurological: Reports Other (period of unresponsiveness with all extremities stiffened per patient spouse)
Physical Exam
Vital Signs
Vital Signs
Temp Pulse Resp BP Pulse Ox
98.0 F 65 21 160/133 99
03/22/25 15:39 03/22/25 18:45 03/22/25 18:30 03/22/25 18:00 03/22/25 16:00
Physical Exam
General: Well Developed, Well Nourished, No Apparent Distress, Comfortable and Conversant
HEENT: NormoCephalic, Moist mucous membranes, Atraumatic, Nose Appears Normal and Ears Appear Normal
Respiratory: Clear
Cardiac: S1/S2 and Irregular Rhythm
GI: Soft, Non Tender, Non Distended and Normal Bowel Sounds; No Organomegaly
Rectal: Deferred by Provider
Genito-urinary: Deferred by me
Musculoskeletal: No Clubbing, No Cyanosis and No Edema
Skin: Warm and IV/Catheter Site
Neuro: Awake, Alert and Nonfocal/grossly intact
Psych: Apparent Dementia
Laboratory Results
-
03/22/25 16:20
03/22/25 16:20
Laboratory Results
PT 22.8 Sec (11.4-14.6) H 03/22/25 16:20
INR 1.95 03/22/25 16:20
APTT Cancelled 03/22/25 15:50
Total Bilirubin 1.4 mg/dl (0.2-1.3) H 03/22/25 16:20
AST 16 U/L (14-36) 03/22/25 16:20
ALT < 10 U/L (0-35) 03/22/25 16:20
Alkaline Phosphatase 48 U/L (38-126) 03/22/25 16:20
Data Reviewed
-
CT Scan: Report Reviewed by me (Head: No acute intracranial abnormalities. 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 Findings again noted compatible with diffuse cortical atrophy with nonspecific white matter changes as described above.)
Medical Tests (Nuc Med, Echo, EKG etc): Report Reviewed by me (EKG: ATRIAL FIBRILLATION WITH PREMATURE VENTRICULAR OR ABERRANTLY CONDUCTED COMPLEXES LEFT AXIS DEVIATION)
Lab Data: Labs Reviewed by me (BUN 31, Creat 1.3)
Impression/Plan
-
IMPRESSION/PLAN:
#seizure like activity witnessed by patient spouse
Head CT: No acute intracranial abnormalities.
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
Findings again noted compatible with diffuse cortical atrophy with nonspecific white matter changes as described above.
- Admit to telemetry
- Consult Neurology
- Brain MRI in morning
- EEG
#atrial fibrillation on Coumadin
EKG: ATRIAL FIBRILLATION WITH PREMATURE VENTRICULAR OR ABERRANTLY CONDUCTED COMPLEXES
LEFT AXIS DEVIATION
INR 1.95
- monitor on telemetry
- continue metoprolol
- continue Coumadin 2.5mg qPM
- daily PT/INR
#essential hypertension
- continue metoprolol
#severe dementia
- continue lorazepam
- hold escitalopram
#CKD IIIb
BUN 31, Creat 1.3
appears to be baseline
- monitor BMP
#lower extremity edema
Code status: DNR
DVT prophylaxis: Coumadin
--- NOTE | 2025-03-22 19:58 | W.PN.UPDATE ---
Update Note
Progress Note Update
This is an addendum to H&P written by Samantha Martin on 03/22/2025.� Patient seen and examined independently with FRAME REPAIRER.
79-year-old female past medical history of chronic atrial fibrillation on Coumadin, CKD, dementia, former smoker, hypertension, presenting with possible seizure.� Daughter states that witnessed and states that all of her extremities
stiffened up and she was unresponsive for few seconds.
Only change is addition of Lexparo last week.
Vital signs normal blood pressure slightly elevated 150s to 160s.� CT head shows no acute abnormality apart from small chronic left putamen lacunar infarct.� Urinalysis negative.
Patient with what seems to be first episode seizure.� Currently back to her baseline mental status.� Telemetry monitoring.
Hold Lexapro, could increase risk of seizure. Check MRI brain, EEG.� Neurology consulted.
--- NOTE | 2025-03-22 22:30 | PTCARENOTE ---
Received patient from ED via stretcher. Patient pulled over from stretcher to bed x3 assist. Patient is confused, oriented to self only. Agitated and combative at times with care. Denies pain. Oriented patient to room and call alcala placed within
reach.
[2025-03-22] MEDS: COUMADIN 2.5 MG PO (22:38)
[2025-03-23 03:28] VITALS: BMI 24.3
[2025-03-23 03:30] VITALS: BP 147/63
--- NOTE | 2025-03-23 04:54 | W.PN.UPDATE ---
Update Note
Progress Note Update
Reported by the nursing, patient noted with bradycardia, hr drop to 30s-40s for few sec then back to to 50s-60s associated with pauses up to 2.5 sec. Asymptomatic. BP 147/63, spo2 96% RA, afebrile.
EKG done, lab still pending
Will continue tele, monitor for abnormal symptoms and cardiology consult as needed.
[2025-03-23 07:46] LABS: Hematocrit 36.9 % (37.0-47.0); Hemoglobin 12.1 g/dL (12.0-16.0); Mean Corp Hgb Conc. 32.8 g/dL (33.0-37.0); Mean Corpuscular Hgb 30.6 pg (27.0-31.0); Mean Corpuscular Volume 93.4 fL (81.0-99.0); Mean Platelet Volume 11.6 fL (7.4-10.4); Platelet Count 120 10^3/uL (130-400); Red Blood Cell Count 3.95 10^6/uL (4.20-5.40); Red Cell Dist. Width 12.5 % (11.5-14.5); White Blood Cell Count 2.6 10^3/uL (4.8-10.8)
[2025-03-23 07:56] VITALS: BP 165/95
[2025-03-23 08:07] LABS: Blood Urea Nitrogen 27 mg/dl (7-17); Calcium 8.8 mg/dl (8.4-10.2); Carbon Dioxide 27 mmol/L (22-30); Chloride 112 mmol/L (98-107); Estimated Creatinine Clearance 29 ml/min; Glucose 82 mg/dl (70-99); Magnesium 2.1 mg/dl (1.6-2.3); Potassium 4.1 mmol/L (3.5-5.1); Sodium 142 mmol/L (135-145); eGFR 45.48
--- NOTE | 2025-03-23 10:01 | CON.NEURO ---
Neuro Assessment/Plan
Assessment
first time seizure
head CT imgs rev'd, chronic left putamen infarct, diffuse atrophy, microvascular changes
EEG shows generalized slowing
check brain MRI
would not treat
Consultation
Order
Date of Consultation: 03/23/25
Requesting Provider: Denita Martin
Reason for Consult: seizure
Subjective/Objective
Subjective Data
Date of Service: March 23, 2025
from h&p:
Patient is a 79-year-old female with past medical history significant for atrial fibrillation on Coumadin, essential hypertension, severe dementia, CKD IIIb and lower extremity edema who presented to [facility] ED for evaluation of episode of
unresponsiveness with extremity jerking. Patient daughter at bedside to assist in HPI. Patient is AAOx1-2 and unable to contribute any meaningful history. Daughter states patient has had recent decline with dementia with increased agitation in the
evenings. Patient was at baseline all day, daughter states she dropped her mom off at [place] following an appointment with patients spouse. Within 15 minutes of leaving spouse reported that patients extremities became stiff and patient was
unresponsive, spouse used call [facility] and patient was at baseline by the time staff arrived in room. Denies any recent illness, fevers, chills, cough, shortness of breath, chest pain, nausea, vomiting, constipation, diarrhea or urinary symptoms.
Objective Data
Vital Signs
Temp Pulse Resp BP Pulse Ox
36.4 C 70 16 165/95 98
03/23/25 07:56 03/23/25 07:56 03/23/25 07:56 03/23/25 07:56 03/23/25 07:56
Lab Results
03/23/25 07:21
03/23/25 07:21
PT 22.8 Sec (11.4-14.6) H 03/22/25 16:20
INR 1.95 03/22/25 16:20
APTT Cancelled 03/22/25 15:50
Sodium 142 mmol/L (135-145) 03/23/25 07:21
Potassium 4.1 mmol/L (3.5-5.1) 03/23/25 07:21
BUN 27 mg/dl (7-17) H 03/23/25 07:21
Glucose 82 mg/dl (70-99) 03/23/25 07:21
Calcium 8.8 mg/dl (8.4-10.2) 03/23/25 07:21
Patient Allergies
No Known Allergies Allergy (Verified 10/22/23 12:37)
Physical Exam
-
Awake and alert, oriented x0, inconsistently following simple commands, not answering questions appropriately
face symmetric
upper extremities antigravity, wiggles toes
Medications
-
Active Medications
Generic Name Dose Route Start Last Admin
Trade Name Freq PRN Reason Stop Dose Admin
Bacitracin 0 applic 03/23/25 08:00
Bacitracin Zinc Ointment (Topical) TOPICAL
DAILY JOSE R
Metoprolol Succinate 100 mg 03/23/25 08:00 03/23/25 09:31
Metoprolol 100 Mg Extended Release Tablet PO 04/20/25 07:59 Not Given
DAILY JOSE R
Sodium Chloride 0 flush 03/22/25 22:00
Sodium Chloride 0.9% (Flush) Syringe IV 04/19/25 21:59
PER PROTOCOL JOSE R
Warfarin Sodium 2.5 mg 03/22/25 22:05 03/22/25 22:38
Warfarin 2.5 Mg Tablet PO 03/27/25 22:04 2.5 mg
QPM JOSE R Administration
Home Medications
�Medication �Instructions �Recorded
metoprolol succinate 100 mg 100 mg PO DAILY Blood Pressure 06/06/22
tablet,extended release 24 hr
(Toprol XL)
warfarin 2.5 mg tablet 2.5 mg PO QPM Blood Clot 10/22/23
Prevention/Tx
bacitracin 500 unit/gram topical 1 applic topical DAILY 03/22/25
ointment
escitalopram oxalate 5 mg tablet 5 mg PO HS 03/22/25
lorazepam 0.5 mg tablet 0.5 mg PO DAILY PRN give 30 mins 03/22/25
prior to care
--- NOTE | 2025-03-23 10:01 | EEG.RPT ---
Electroencephalogram Report
Recording
Date of EE03/23/25
Type of EEG: Routine
Length of EEG recordin mins
Done with Video Recording: Yes
Patient Status: Inpatient
Recording Conditions: Awake and Drowsy
Hyperventilation Performed: No
Photic Stimulation Performed: Yes
Report
Clinical Background:�79 year old woman with transient loss of consciousness
Introduction: A routine bedside EEG was done using International 10-20 electrode placement protocol.
Background: In the most alert state, there is continuous generalized polymorphic theta activity, 6-7 Hz, with moderate amplitude. There is spontaneous variability and reactivity.�
Sleep: No sleep is seen.�
Focal/epileptiform: There were no focal or epileptiform discharges. No clinical or electrographic seizures occurred during this recording.
Photic stimulation: resulted in no background change. There was no photo myogenic or photoparoxysmal response.�
Impression: continuous generalized slowing
Clinical correlation:�Continuous generalized slowing indicates mild generalized cerebral dysfunction, as could be seen with toxic/metabolic encephalopathy, sedation,�hyponatremia, hypoxia, hypothyroidism
--- NOTE | 2025-03-23 11:31 | W.PN.HOSP.TC ---
Today's Communication/Plan
-
hold toprol
dc lexxapro
await neuro recs
MR brain pending
Assessment / Plan
Assessment / Plan
#seizure like activity witnessed by patient spouse ?due to lexapro
Head CT: No acute intracranial abnormalities. 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 Findings again noted compatible with diffuse cortical atrophy with nonspecific white matter changes as described above.
- Consult Neurology
- EEG Continuous generalized slowing indicates mild generalized cerebral dysfunction, as could be seen with toxic/metabolic encephalopathy, sedation,�hyponatremia, hypoxia, hypothyroidism
- Dc lexapro for now
- MRI pending.
#Suspect permanent atrial fibrillation
#Chronic coagulopathy on coumadin
#Subtherapeutic INR
- monitor on telemetry
- hold metoprolol with sinus pauses/bradycardia. If needed may need to decrease dose
- home Coumadin 2.5mg qPM. Will adjust prn based on IR
- daily PT/INR
#essential hypertension
- continue metoprolol
#severe progressive dementia unknown behavioral disturbances
- continue lorazepam
- hold escitalopram
#CKD IIIb
BUN 31, Creat 1.3
appears to be baseline
- monitor BMP
#Chronic leukopenia
Code status: DNR
DVT prophylaxis: Coumadin
update daughter over the phone in details
Anticipated Discharge: > 48 hours
Subjective/Interval History
-
Date of Service: March 23, 2025
overnight events sinus pauses and bradycardia noted
Pt talking about her father and kids,
incoherent at times
Objective Data
-
Labs:
Laboratory Results
03/23/25
07:21
WBC 2.6 L
Hgb 12.1
Hct 36.9 L
Plt Count 120 L
Sodium 142
Potassium 4.1
Chloride 112 H
Carbon Dioxide 27
BUN 27 H
Creatinine 1.2 H
Glucose 82
Calcium 8.8
Vital Signs:
Vital Signs
Temp Pulse Resp BP Pulse Ox
97.5 F 70 16 165/95 98
03/23/25 07:56 03/23/25 07:56 03/23/25 07:56 03/23/25 07:56 03/23/25 07:56
I&O
03/22/25 03/23/25 03/24/25
06:59 06:59 06:59
Intake Total 120 / 120
Output Total 300 / 300
Balance -180 / -180
Physical Exam
-
General: Well Developed and No Apparent Distress
HEENT: Normocephalic, Atraumatic and Moist Mucous Membranes
Respiratory: Clear to Auscultation
Cardiac: Regular Rhythm and S1/S2; Negative Murmur, Rub or Gallop
GI: Soft, Nontender, Nondistended and Normal Bowel Sounds; Negative Organomegaly
Rectal: Deferred by Provider
Musculoskeletal: No Clubbing, No Cyanosis and No Edema
Skin: Negative Rash
Neuro: Awake and Nonfocal/Grossly Intact
Psych: Confused and Apparent Dementia
Data Reviewed
-
Total Time Spent with Patient (in minutes): 55
[2025-03-23 11:45] VITALS: BP 158/85
[2025-03-23 12:15] LABS: INR 1.88; PT 22.1 Sec (11.4-14.6)
[2025-03-23] MEDS: BACITRACIN OINTMENT 1 APPLIC TOPICAL (12:43)
[2025-03-23 15:10] VITALS: BP 114/71
[2025-03-23] MEDS: TOPROL XL 25 MG PO (16:35)
--- NOTE | 2025-03-23 16:59 | CM ---
Alert confused patient who
lives with her at assisted living [place] . Spoke with dgt Yamile in room . Pt is confused in a Dementia unit .She uses a walker .She is assisted in [facility].She does not drive .[facility] letter explained and dgt signed copy
on chart.
[facility] in past . No SNF hx
Ph[facility]acy [facility]
PCP Dr Qasim García
PLAN Will need PT OT evals for dc planning
[2025-03-23] MEDS: COUMADIN 4 MG PO (17:03)
--- NOTE | 2025-03-23 17:12 | PTCARENOTE ---
Patient with elevated HR of 110-[address] Moore made aware. Stat order of 25mg metoprolol PO ordered and administered.
[2025-03-23 19:35] VITALS: BP 139/82
[2025-03-23 23:16] VITALS: BP 150/84
[2025-03-24] VITALS (7 sets, daily range): BP systolic 121–166; BP diastolic 67–102; PULSE 55; O2SAT 100; BMI 24.0
[2025-03-24 07:19] LABS: INR 1.89; PT 22.2 Sec (11.4-14.6)
[2025-03-24] MEDS: BACITRACIN OINTMENT 1 APPLIC TOPICAL (08:35)
[2025-03-24] MEDS: TOPROL XL 25 MG PO (08:40)
[2025-03-24] MEDS: FLUSH (NSS) 1 FLUSH IV (08:41)
--- NOTE | 2025-03-24 11:46 | W.PN.HOSP.TC ---
Today's Communication/Plan
-
monitor Hr on tele
PT eval
oob
fall precautions
increase coumadin dose
Assessment / Plan
Assessment / Plan
#seizure like activity witnessed by patient spouse ?due to lexapro
Head CT: No acute intracranial abnormalities. 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 Findings again noted compatible with diffuse cortical atrophy with nonspecific white matter changes as described above.
- Consult Neurology
- EEG Continuous generalized slowing indicates mild generalized cerebral dysfunction, as could be seen with toxic/metabolic encephalopathy, sedation,�hyponatremia, hypoxia, hypothyroidism
- Dc lexapro for now
- MRI brain-No acute intracranial abnormality within the limitations of motion artifact.
-Neuro correspondence noted
#Suspect permanent atrial fibrillation
#Chronic coagulopathy on coumadin
#Subtherapeutic INR
- monitor on telemetry
- restart toprol at lower dose and monitor.
- home Coumadin 2.5mg qPM. Will adjust prn based
- daily PT/INR
#Mild urinary retention
-patiño catheter placed overnight
#essential hypertension
- continue metoprolol
#severe progressive dementia unknown behavioral disturbances
- continue lorazepam
- Dc escitalopram
#CKD IIIb
BUN 31, Creat 1.3
appears to be baseline
- monitor BMP
#Chronic leukopenia
Code status: DNR
DVT prophylaxis: Coumadin
update daughter over the phone in details on 03/23 and 03/24
Anticipated Discharge: Within 24 hours
Subjective/Interval History
-
Date of Service: March 24, 2025
remains confused
no seizure like activity noted
overnight events noted and patiño catheter placed for retention
Objective Data
-
Labs:
Laboratory Results
03/24/25
05:57
PT 22.2 H
INR 1.89
Vital Signs:
Vital Signs
Temp Pulse Resp BP Pulse Ox
97.4 F 77 18 152/94 99
03/24/25 11:00 03/24/25 11:00 03/24/25 11:00 03/24/25 11:00 03/24/25 11:00
I&O
03/23/25 03/24/25 03/25/25
06:59 06:59 06:59
Intake Total 120 / 120
Output Total 300 / 300
Balance -180 / -180
Physical Exam
-
General: Well Developed and No Apparent Distress
HEENT: Normocephalic, Atraumatic and Moist Mucous Membranes
Respiratory: Clear to Auscultation
Cardiac: S1/S2 and Irregular Rhythm; Negative Murmur, Rub or Gallop
GI: Soft, Nontender, Nondistended and Normal Bowel Sounds; Negative Organomegaly
Rectal: Deferred by Provider
Musculoskeletal: No Clubbing, No Cyanosis and No Edema
Skin: Negative Rash
Neuro: Awake and Nonfocal/Grossly Intact
Psych: Confused and Apparent Dementia
--- NOTE | 2025-03-24 16:16 | PTCARENOTE ---
Pt awake and alert; oriented to self/birthdate only, very confused conversation. Cooperative. RAI; OOB to chair/ambulates to stretcher with assist x1/walker. VSS. Telemetry:A fib. On room air- pulse ox 94%, no SOB noted. Abd large, soft, pattie
PO, appetite fair. Finney P/I large amts clear yellow urine. Resting comfortably at present, no c/o. Will continue to monitor.
[2025-03-24] MEDS: COUMADIN 5 MG PO (17:53)
[2025-03-25 03:20] VITALS: BP 138/90
[2025-03-25 06:00] VITALS: BMI 24.0
[2025-03-25 07:23] LABS: INR 2.24; PT 25.3 Sec (11.4-14.6)
[2025-03-25 07:24] LABS: % Basophils 0.5 % (0-2); % Eosinophils 1.7 % (0-6); % Immature Granulocytes 0.2 % (0-0.5); % Lymphocytes 31.4 % (20.5-51.1); % Monocytes 16.9 % (1.7-9.3); % Neutrophils 49.3 % (42.2-75.2); Absolute Eosinophils 0.1 10^3/uL (0-0.7); Absolute Lymphocytes 1.3 10^3/uL (1.2-3.4); Absolute Monocytes 0.7 10^3/uL (0.1-0.6); Absolute Neutrophils 2.1 10^3/uL (1.4-6.5); Hematocrit 37.6 % (37.0-47.0); Hemoglobin 12.5 g/dL (12.0-16.0); Mean Corp Hgb Conc. 33.2 g/dL (33.0-37.0); Mean Corpuscular Hgb 30.9 pg (27.0-31.0); Mean Corpuscular Volume 92.8 fL (81.0-99.0); Mean Platelet Volume 11.8 fL (7.4-10.4); Nucleated Red Blood Cells % 0 %; Platelet Count 125 10^3/uL (130-400); Red Blood Cell Count 4.05 10^6/uL (4.20-5.40); Red Cell Dist. Width 12.5 % (11.5-14.5); White Blood Cell Count 4.2 10^3/uL (4.8-10.8)
[2025-03-25 07:45] LABS: Blood Urea Nitrogen 21 mg/dl (7-17); Calcium 8.8 mg/dl (8.4-10.2); Carbon Dioxide 27 mmol/L (22-30); Chloride 111 mmol/L (98-107); Estimated Creatinine Clearance 32 ml/min; Glucose 72 mg/dl (70-99); Potassium 4.4 mmol/L (3.5-5.1); Sodium 141 mmol/L (135-145); eGFR 50.48
[2025-03-25 08:19] VITALS: BP 143/82
[2025-03-25] MEDS: TOPROL XL 25 MG PO (10:26)
[2025-03-25] MEDS: BACITRACIN OINTMENT 1 APPLIC TOPICAL (10:26)
[2025-03-25] MEDS: FLUSH (NSS) 1 FLUSH IV ×2 (10:27→20:12)
--- NOTE | 2025-03-25 11:11 | W.PN.HOSP.TC ---
Today's Communication/Plan
-
INR therapeutic
Continue with reduced dose of Toprol
Discontinue Patiño catheter monitor for voiding
Plan for tentative DC later today post voiding
Assessment / Plan
Assessment / Plan
#seizure like activity witnessed by patient spouse ?due to lexapro
Head CT: No acute intracranial abnormalities. 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 Findings again noted compatible with diffuse cortical atrophy with nonspecific white matter changes as described above.
- Consult Neurology
- EEG Continuous generalized slowing indicates mild generalized cerebral dysfunction, as could be seen with toxic/metabolic encephalopathy, sedation,�hyponatremia, hypoxia, hypothyroidism
- Dc lexapro for now
- MRI brain-No acute intracranial abnormality within the limitations of motion artifact.
-Neuro correspondence noted
#permanent atrial fibrillation
#Chronic coagulopathy on coumadin
#Subtherapeutic INR
- monitor on telemetry
- restart toprol at lower dose and monitor.
- INR therapeutic at 2.2. Reduce to home dose of Coumadin.
- daily PT/INR. Follows with [facility] cardiology as outpatient.
#Mild urinary retention
-patiño catheter placed overnight
- Voiding trial today.
#essential hypertension
- continue metoprolol
#severe progressive dementia unknown behavioral disturbances
- continue lorazepam
- Dc escitalopram
#CKD IIIb
BUN 31, Creat 1.3
appears to be baseline
- monitor BMP
#Chronic leukopenia
Code status: DNR
DVT prophylaxis: Coumadin
update daughter over the phone in details on 03/23 and 03/24 and 03/25
Dispo-remove Patiño catheter. DC back to [facility] if voiding post removal
Anticipated Discharge: Within 24 hours
Subjective/Interval History
-
Date of Service: March 25, 2025
Patient remains at baseline confusion
patiño with good urinary output
Objective Data
-
Labs:
Laboratory Results
03/25/25
06:16
WBC 4.2 L
Hgb 12.5
Hct 37.6
Plt Count 125 L
PT 25.3 H
INR 2.24
Sodium 141
Potassium 4.4
Chloride 111 H
Carbon Dioxide 27
BUN 21 H
Creatinine 1.1 H
Glucose 72
Calcium 8.8
Vital Signs:
Vital Signs
Temp Pulse Resp BP Pulse Ox
97.9 F 90 16 165/102 98
03/25/25 08:19 03/25/25 10:26 03/25/25 08:19 03/25/25 10:26 03/25/25 08:19
I&O
03/24/25 03/25/25 03/26/25
06:59 06:59 06:59
Intake Total 720 / 720
Output Total 900 / 900
Balance -180 / -180
Physical Exam
-
General: Well Developed and No Apparent Distress
HEENT: Normocephalic, Atraumatic and Moist Mucous Membranes
Respiratory: Clear to Auscultation
Cardiac: S1/S2 and Irregular Rhythm; Negative Murmur, Rub or Gallop
GI: Soft, Nontender, Nondistended and Normal Bowel Sounds; Negative Organomegaly
Rectal: Deferred by Provider
Genito-urinary: Patiño
Musculoskeletal: No Clubbing, No Cyanosis and No Edema
Skin: Negative Rash
Neuro: Awake and Nonfocal/Grossly Intact
Psych: Confused and Apparent Dementia
[2025-03-25 11:55] VITALS: BP 143/88
--- NOTE | 2025-03-25 11:55 | PTCARENOTE ---
Removed patiño catheter at this time per orders without difficulty. Pt placed on time and amount, will monitor.
--- NOTE | 2025-03-25 12:40 | PTCARENOTE ---
Pt trying to get OOB unassisted, HR up to 140s, asymptomatic, BP 160/101. Once pt back in bed, HR down to low 100s-120. Made Dr. Joy aware. He is ok with the HR going up to 120, will monitor.
[2025-03-25 15:21] VITALS: BP 156/81
--- NOTE | 2025-03-25 16:36 | PTCARENOTE ---
Pt was incontinent of bowel and bladder. Bladder scanned for 91ml. Dr Condon notified. Plan for DC tomorrow.
[2025-03-25] MEDS: COUMADIN 2.5 MG PO (17:19)
--- NOTE | 2025-03-25 18:30 | CM ---
PT OT indicate SNF.
Pt lives at assisted living [facility].
Spoke with dgt Shannon reviewed PT evals with dgt.
Dgt requested pt return to [facility].
PLAn Return to assisted living [facility]
[2025-03-25 19:31] VITALS: BP 149/67
[2025-03-25 23:46] VITALS: BP 132/76
[2025-03-26 03:41] VITALS: BP 139/89
[2025-03-26 06:00] VITALS: BMI 24.1
[2025-03-26 06:19] LABS: INR 2.46; PT 26.7 Sec (11.4-14.6)
[2025-03-26 07:22] VITALS: BP 151/85
[2025-03-26] MEDS: BACITRACIN OINTMENT 1 APPLIC TOPICAL (09:11)
[2025-03-26] MEDS: TOPROL XL 25 MG PO (09:11)
[2025-03-26] MEDS: FLUSH (NSS) 1 FLUSH IV (09:11)
--- NOTE | 2025-03-26 10:50 | W.PN.HOSP.TC ---
Addendum entered and electronically signed by Harvey Moore MD 03/26/25 10:54:
Updated daughter over the phone in details. Agrees with discharge planning today.
Original Note:
Today's Communication/Plan
-
dc today
Assessment / Plan
Assessment / Plan
#seizure like activity witnessed by patient spouse ?due to lexapro
Head CT: No acute intracranial abnormalities. 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 Findings again noted compatible with diffuse cortical atrophy with nonspecific white matter changes as described above.
- Consult Neurology
- EEG Continuous generalized slowing indicates mild generalized cerebral dysfunction, as could be seen with toxic/metabolic encephalopathy, sedation,�hyponatremia, hypoxia, hypothyroidism
- Dc lexapro for now
- MRI brain-No acute intracranial abnormality within the limitations of motion artifact.
-Neuro correspondence noted
#permanent atrial fibrillation with intermittent bradycardia overnight
#Chronic coagulopathy on coumadin
#Subtherapeutic INR
- monitor on telemetry
- restart toprol at lower dose due to mild bradycardia.
- INR therapeutic at 2.46. Continue with home dose of Coumadin
- daily PT/INR. Follows with [facility] cardiology as outpatient.
#Mild urinary retention
Status post Finney catheter placement and removal. Voiding.
#essential hypertension
- continue metoprolol
#severe progressive dementia unknown behavioral disturbances
- continue lorazepam
- Dc escitalopram
#CKD IIIb
BUN 31, Creat 1.3
appears to be baseline
- monitor BMP
#Chronic leukopenia
Code status: DNR
DVT prophylaxis: Coumadin
DC back to [facility] today
More than 30 minutes spent in discharge including
Final examination of the patient
Summarizing hospital stay
Instructions for continuing care to all relevant caregivers
Preparation of discharge records, prescriptions, and referral forms
Total time spent (in minutes): 52
Anticipated Discharge: Today
Subjective/Interval History
-
Date of Service: March 26, 2025
No significant bradycardia noted overnight
Objective Data
-
Labs:
Laboratory Results
03/26/25
05:28
PT 26.7 H
INR 2.46
Vital Signs:
Vital Signs
Temp Pulse Resp BP Pulse Ox
98.0 F 87 16 151/85 99
03/26/25 07:22 03/26/25 09:11 03/26/25 07:22 03/26/25 09:11 03/26/25 07:22
I&O
03/25/25 03/26/25 03/27/25
06:59 06:59 06:59
Intake Total 720 / 720
Output Total 900 / 900 450 / 450
Balance -180 / -180 -450 / -450
--- NOTE | 2025-03-26 10:53 | W.DCSUMMARY ---
Discharge Summary
Discharge Data
Date of Admission: 03/24/25
Date of Discharge: 03/26/25
-
Pending Results: No
Hospital Course
79-year female past medical history of progressive dementia, CKD, leukopenia, hypertension, atrial fibrillation chronic coagulopathy with Coumadin who is presenting with witnessed seizure-like episode. Patient was recently started on Lexapro.
Patient went CT of the head No acute intracranial abnormalities. 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 Findings again noted compatible with diffuse cortical atrophy with nonspecific white matter changes as described above. MRI of the
brain showed No acute intracranial abnormality within the limitations of motion artifact. Underwent EEG which was negative for seizure. Patient was eval by neurology and recommended no further treatment. Lexapro was discontinued. Patient INR was
subtherapeutic and received high dose of Coumadin. INR become therapeutic. Patient also with bradycardia overnight and Toprol dose was decreased to 25 mg daily. Patient had episode of urinary retention required Finney catheter overnight on
admission. Finney catheter was removed and patient was voiding without difficulty. Patient was worked with PT and OT with discharge to SNF.
Discharge Plan
-
Patient Disposition: Assisted Living
Discharge Diagnosis/Procedures: seizure like activity ?due to lexapro
Mild urinary retention status post Finney catheter placement and removal
Atrial fibrillation with bradycardia
Condition: Fair
Diet: Regular
Activity: With assistance and As tolerated
Driving Restrictions: No driving
Blood Work: INR check in 2 -3days via primary doctor
Referrals:
Tali García, [Family Provider] - in less than 1 week
Additional Discharge Medication Instructions: Toprol dose was decreased to 25 mg daily
Prescriptions:
New
metoprolol succinate 25 mg Tablet Extended Release 24 Hr
25 mg PO DAILY Qty: 30 0RF
Continued
warfarin 2.5 mg tablet
2.5 mg PO QPM
bacitracin 500 unit/gram Ointment
1 applic TOPICAL DAILY
Rx Instructions:
apply to left 2nd toe topically for wound, apply lightly and cover with Band-Aid
lorazepam 0.5 mg Tablet
0.5 mg PO DAILY PRN (Reason: give 30 mins prior to care )
Discontinued
metoprolol succinate [Toprol XL] 100 mg Tablet Extended Release 24 Hr
100 mg PO DAILY
escitalopram oxalate 5 mg Tablet
5 mg PO HS
Discharge Orders:
Discharge Patient (As Directed); Ordered 03/26/25
Ordered By: Harvey Moore
Discharge Date and Time
Print Language: ITALIAN
--- NOTE | 2025-03-26 11:24 | CM ---
Patient from [facility] with Dx seizure like activity. Toom air. PT/OT; assist of 2, recommend skilled rehab.
Spoke with nurse [facility] (ph [phone]); they cannot accept the patient back with her current mobility, and she would need to go to SNF for rehab prior to returning.
Spoke with patient's daughter Yamile;
provided update that [facility] is declining to accept her back at this time. Relayed patient's current mobility as per PT/OT. Daughter agrees to SNF referral to [facility], [facility].
Spoke with [facility], [facility], [facility]; she is reaching out to the facilities to see if they have an available bed today.
Plan SNF once accepting facility obtained.
[2025-03-26 11:33] VITALS: BP 153/82
== END 2025-03-26 14:55 | DRG 884 ==
LOC: 4 EAST ACU 11:08
PROVIDERS: Nurse Practitioner Family; ADMITTING PHYSICIAN Hospitalist; ATTENDING PHYSICIAN Hospitalist; CONSULT PHYSICIAN Psychiatry & Neurology Clinical Neurophysiology; EMERGENCY PHYSICIAN Student in an Organized Health Care Education/Training Program; FAMILY PHYSICIAN Family Medicine
DX: F03.C18 Unspecified dementia, severe, with other behavioral disturbance (principal); I48.21 Permanent atrial fibrillation; D68.9 Coagulation defect, unspecified; R56.9 Unspecified convulsions; N18.32 Chronic kidney disease, stage 3b; I12.9 Hypertensive chronic kidney disease with stage 1 through stage 4 chronic kidney disease, or unspecified chronic kidney disease; G31.9 Degenerative disease of nervous system, unspecified; R00.1 Bradycardia, unspecified; T43.225A Adverse effect of selective serotonin reuptake inhibitors, initial encounter; Y92.099 Unspecified place in other non-institutional residence as the place of occurrence of the external cause; M54.31 Sciatica, right side; D72.819 Decreased white blood cell count, unspecified; R33.9 Retention of urine, unspecified; R55 Syncope and collapse; Z66 Do not resuscitate; Z96.641 Presence of right artificial hip joint; Z87.891 Personal history of nicotine dependence; Z86.73 Personal history of transient ischemic attack (TIA), and cerebral infarction without residual deficits; Z79.01 Long term (current) use of anticoagulants
CPT/HCPCS: 51701; 70450; 70553; 80048; 80053; 81003; 81015; 83735; 85025; 85027; 85610; 87070; 93005; 95816; 97163; 97167; 97530; 99285; A9575